=== PATIENT | male | born 1985 ===

== ENCOUNTER 2019-05-07 16:03 | Emergency (ER) | payer SELFPAY ==
--- NOTE | 2019-05-07 16:07 | UC ---
Laceration HPI - HPI Summary HPI Summary: 33 yo male presents with LEFT index finger laceration. He tells me that just [employer] he was using a utility knife and it slipped and he sustained a laceration to his left distal index finger. Bandaged the area and came directly to . States last tetanus was within the last 10 years, but not within the last 5 years. - History Of Current Complaint Stated Complaint: FINGER LAC Time Seen by Provider: 05/07/19 16:07 Hx Obtained From: Patient Laceration Location: Finger Mechanism Of Injury: Sharp Trauma Onset/Duration: Sudden Onset Severity: Moderate Pain Intensity: 7 Pain Scale Used: 0-10 Numeric - Allergies/Home Medications Allergies/Adverse Reactions: Allergies Allergy/AdvReac Type Severity Reaction Status Date / Time No Known Allergies Allergy Verified 05/07/19 16:28 Home Medications: Home Medications Naproxen Sodium [Aleve] 2 tab PO DAILY 05/07/19 [History Confirmed 05/07/19] PMH/Surg Hx/FS Hx/Imm Hx - Additional Past Medical History Additional PMH: None - Surgical History Surgical History: None - Family History Known Family History: Positive: None - Social History Occupation: Employed Full-time Lives: With Family Alcohol Use: Occasionally Substance Use Type: None Smoking Status (MU): Light Every Day Tobacco Smoker Type: Cigarettes Review of Systems All Other Systems Reviewed And Are Negative: No Constitutional: Positive: Negative Skin: Positive: Other - Finger laceration Respiratory: Positive: Negative Cardiovascular: Positive: Negative Neurovascular: Positive: Negative Musculoskeletal: Positive: Negative Neurological: Positive: Negative Psychological: Positive: Negative Physical Exam - Summary Physical Exam Summary: GENERAL: Mild pain distress SKIN: LEFT INDEX FINGER: ulnar aspect of distal phalanx with superficial skin avulsion - moderate active bleeding. Clean appearing. No tendon or bony involvement CHEST: No accessory muscle use. Breathing comfortably and in no distress. CV: Pulses intact radial and ulnar. Cap refill <2seconds NEURO: Alert. Sensations intact hand and all fingers. PSYCH: Age appropriate behavior. Triage Information Reviewed: Yes Vital Signs: Vital Signs: Temp Pulse Resp BP Pulse Ox 98 F 115 17 160/80 97 05/07/19 16:22 05/07/19 16:22 05/07/19 16:22 05/07/19 16:22 05/07/19 16:22 Vital Signs Reviewed: Yes Laceration Repair - Laceration Repair 1 Laceration Size After Repair: Length (cm) - 1.0, Width (mm) - 5 Type Injection: Digital Anesthesia Used: 2.0% Lido Irrigation With Pressure Irrigation Device: Yes Closure Material: Skin Adhesive - gel foam Laceration Course/Dx - Course/Dx Course Of Treatment: The procedure was explained to the pt and all questions were answered. A time out was performed, witnessed, and signed. The area was irrigated with 200mL sterile saline. 2mL of 2% lidocaine without epi was administered as a digital block to the base of the left index finger and good anesthetization was achieved. Gel foam was applied to the distal skin avulsion and bandaged with tubegauze. Pt tolerated procedure well. He refused tdap today - Diagnosis Provider Diagnosis: Avulsion of skin of finger Discharge ED - Sign-Out/Discharge Documenting (check all that apply): Patient Departure All imaging exams completed and their final reports reviewed: No Studies - Discharge Plan Condition: Fair Disposition: HOME Patient Education Materials: Skin Avulsion (ED) Referrals: No Primary Care Phys,NOPCP [Primary Care Provider] - Additional Instructions: If you develop a fever, shortness of breath, chest pain, new or worsening symptoms - please call your PCP or go to the ED immediately. Your blood pressure was high at todays visit. Please see your primary provider within 4 weeks for recheck and re-evaluation. Keep the dressing that was put on today intact for the next 48 hours, then may soak in warm water and remove the dressing and apply a band-aid until well healed. - Billing Disposition and Condition Condition: FAIR Disposition: Home
[2019-05-07] MEDS ORDERED: Tetan/Diph/Pertus SYR(Tdap)* 0.5 ML SYR(BOOSTRIX) use SYR contains LATEX IM ONE (16:11)
[2019-05-07] MEDS ORDERED: Lidocaine 2% PF * 5 ML VIAL INJ ONE (16:17)
[2019-05-07] MEDS ORDERED: Gelfoam 12-7 ADSORBABL SPONGE* 1 EA SPONGE TOPICAL ONE (16:18)
[2019-05-07 16:27] VITALS: BP 160/80
== END 2019-05-07 17:41 | disposition home or self-care (01) ==
LOC: UCEAST 16:03
DX: S61.211A Laceration without foreign body of left index finger without damage to nail, initial encounter (principal); F17.210 Nicotine dependence, cigarettes, uncomplicated; W26.0XXA Contact with knife, initial encounter; Y92.9 Unspecified place or not applicable
CPT/HCPCS: 12001; 90715; 99201; A9270-GY; G0463